=== PATIENT | male | born 1955 | race Caucasian/White ===

== ENCOUNTER 2017-08-06 11:13 | Emergency (ER) | payer MEDICAID ==
[~2017-08-06] VITALS: Ht 167.6 cm; Wt 68.5 kg
[2017-08-06] MEDS ORDERED: KETO5DRO80 EACHEYE (11:32)
[2017-08-06] MEDS ORDERED: OMEP20CA10 PO (11:32)
[2017-08-06] MEDS ORDERED: ICOS1CAP PO (11:32)
[2017-08-06] MEDS ORDERED: ASPI-1159 PO (11:32)
[2017-08-06] MEDS ORDERED: RENA-VITE (11:32)
[2017-08-06] MEDS ORDERED: INSU100I24 SQ (11:32)
[2017-08-06] MEDS ORDERED: FURO40TA5 PO (11:32)
[2017-08-06] MEDS ORDERED: CALC667T2 PO (11:32)
[2017-08-06] MEDS ORDERED: AMLO10TA80 PO (11:32)
[2017-08-06] MEDS ORDERED: ATOR40TA70 PO (11:32)
[2017-08-06] MEDS ORDERED: GABA-529 PO (11:32)
[2017-08-06 11:42] VITALS: BP 177/77
[2017-08-06 12:04] LABS: BASOPHILS % 0.2 % (0.0-2.0); EOSINOPHILS % 7.9 % (0.0-5.0); HEMATOCRIT. 38.6 % (42.0-52.0); HEMOGLOBIN. 12.7 g/dL (14.0-18.0); LYMPHOCYTES % 16.1 % (20.0-50.0); MEAN CORPUSCULAR HEMOGLOBIN 30.7 pg (28.0-32.0); MEAN CORPUSCULAR VOLUME 93.6 fL (80.0-94.0); MEAN PLATELET VOLUME 7.3 fl (7.4-10.4); MONOCYTES % 9.9 % (2.0-8.0); NEUTROPHILS % 65.9 % (40.0-76.0); PLATELET 275 x1000/uL (130-400); RED BLOOD CELL COUNT 4.12 mill/uL (4.7-6.1); RED CELL DISTRIBUTION WIDTH 14.6 % (11.6-14.6)
[2017-08-06 12:11] LABS: CHLORIDE 101 mEq/L (98-107)
[2017-08-06 12:20] LABS: CARBON DIOXIDE 30 mEq/L (21-32)
[2017-08-06 12:22] LABS: PROTHROMBIN TIME 10.8 sec (9.4-11.6)
== END 2017-08-06 12:46 | disposition home or self-care (01) ==
LOC: ER 11:30
DX: R41.82 Altered mental status, unspecified (principal); E11.9 Type 2 diabetes mellitus without complications; I10 Essential (primary) hypertension; Z99.2 Dependence on renal dialysis; Z79.82 Long term (current) use of aspirin; Z79.4 Long term (current) use of insulin
CPT/HCPCS: 36415; 71010; 80053; 83605; 85025; 85610; 87040; 93005; 99285

== ENCOUNTER 2018-11-23 17:44 | Inpatient (IN) | payer MEDICARE, MEDICAID ==
[~2018-11-23] VITALS: Ht 157.5 cm; Wt 68.1 kg
[~2018-11-23 17:44] MED LIST: AMLO10TA80 PO; ASPI-1159 PO; ATOR40TA70 PO; CALC667T2 PO; CARV25TA47 PO; DONE5TAB33 PO; FURO40TA5 PO; GABA-529 PO; ICOS1CAP PO; INSU100I24 SQ; KETO5DRO80 EACHEYE; MEMA10TA2 PO; OMEP20CA10 PO; RENA-VITE
[2018-11-23] MEDS ORDERED: ONDANSETRON HCL 4MG/2ML INJ IV STA (18:31)
[2018-11-23] MEDS ORDERED: NITROGLYCERIN OINT 1GM/INCH UDPKT TD ONE (18:45)
[2018-11-23] MEDS ORDERED: LORAZEPAM 0.5MG TABLET PO ONE (18:45)
[2018-11-23] MEDS ORDERED: FENTANYL CITRATE/PF 50MCG/ML 2ML VIAL IV ONE (18:45)
[2018-11-23 19:00] LABS: BASOPHILS % 0.5 % (0.0-2.0); HEMATOCRIT. 32.9 % (42.0-52.0); LYMPHOCYTES % 13.1 % (20.0-50.0); MEAN CORPUSCULAR HEMOGLOBIN 32.7 pg (28.0-32.0); MEAN CORPUSCULAR VOLUME 97.5 fL (80.0-94.0); MEAN PLATELET VOLUME 8.1 fl (7.4-10.4); MONOCYTES % 7.6 % (2.0-8.0); NEUTROPHILS % 67.8 % (40.0-76.0); PLATELET 216 x1000/uL (130-400); RED BLOOD CELL COUNT 3.38 mill/uL (4.7-6.1); RED CELL DISTRIBUTION WIDTH 14.4 % (11.6-14.6)
[2018-11-23 19:07] LABS: INR 1.1; PARTIAL THROMBOPLASTIN TIME 26.6 sec (23.4-31.0); PROTHROMBIN TIME 10.6 sec (9.1-11.1)
[2018-11-23 19:43] LABS: CLARITY URINE CLEAR (CLEAR); COLOR URINE YELLOW (YELLOW); KETONES URINE NEGATIVE (NEGATIVE); LEUKOCYTE ESTERASE URINE TRACE (NEGATIVE); NITRITE URINE NEGATIVE (NEGATIVE); OCCULT BLOOD URINE TRACE (NEGATIVE); PROTEIN URINE 4+ (NEGATIVE); SPECIFIC GRAVITY URINE 1.021 (1.005-1.030)
[2018-11-23 20:12] LABS: *AMPHETAMINES SCREEN URINE NEGATIVE (NEGATIVE); *BARBITURATES SCREEN URINE NEGATIVE (NEGATIVE); *COCAINE SCREEN URINE NEGATIVE (NEGATIVE); METHADONE URINE SCREEN NEGATIVE (NEGATIVE); OPIATES URINE SCREEN NEGATIVE (NEGATIVE); PHENCYCLIDINE URINE SCREEN NEGATIVE (NEGATIVE)
[2018-11-23 20:14] LABS: *BENZODIAZEPINES SCREEN URINE NEGATIVE (NEGATIVE); CANNABINOID URINE SCREEN NEGATIVE (NEGATIVE)
[2018-11-23 20:42] LABS: CHLORIDE 102 mEq/L (98-107)
[2018-11-23] MEDS: ENALAPRIL 5MG TABLET PO SCH (23:05)
[2018-11-23] MEDS ORDERED: DOCUSATE SODIUM 100MG CAPSULE PO PRN (23:45)
[2018-11-23] MEDS ORDERED: IPRATROPIUM/ALBUTEROL 0.5-3(2.5)MG/3ML NEB INH PRN (23:45)
[2018-11-23] MEDS ORDERED: HYDROCODONE/ACETAMINOPHEN 5/325MG TABLET PO PRN (23:45)
[2018-11-23] MEDS ORDERED: ONDANSETRON HCL 4MG/2ML INJ IV PRN (23:45)
[2018-11-23] MEDS ORDERED: ACETAMINOPHEN 325MG TABLET PO PRN (23:45)
[2018-11-24 06:33] LABS: BASOPHILS % 0.3 % (0.0-2.0); EOSINOPHILS % 12.2 % (0.0-5.0); HEMATOCRIT. 29.6 % (42.0-52.0); HEMOGLOBIN. 10.2 g/dL (14.0-18.0); MEAN CORPUSCULAR HEMOGLOBIN 33.1 pg (28.0-32.0); MEAN CORPUSCULAR VOLUME 96.6 fL (80.0-94.0); MEAN PLATELET VOLUME 7.7 fl (7.4-10.4); MONOCYTES % 8.1 % (2.0-8.0); NEUTROPHILS % 62.4 % (40.0-76.0); PLATELET 200 x1000/uL (130-400); RED BLOOD CELL COUNT 3.07 mill/uL (4.7-6.1); RED CELL DISTRIBUTION WIDTH 14.5 % (11.6-14.6)
[2018-11-24 06:50] LABS: CREATINE KINASE MB FRACTION 1.8 ng/mL (0.5-3.6)
[2018-11-24] MEDS: ASPIRIN 81MG EC TABLET PO SCH (09:15)
[2018-11-24 10:00] VITALS: BP 175/61
[2018-11-24 12:21] VITALS: BP 123/69
[2018-11-24 16:25] VITALS: BP 128/62
[2018-11-24] MEDS: FUROSEMIDE 40MG TABLET PO SCH (16:37)
[2018-11-24] MEDS ORDERED: DEXTROSE 50% WATER 50ML SYRINGE IV PRN (16:45)
[2018-11-24 17:22] LABS: CREATINE KINASE MB FRACTION 2.1 ng/mL (0.5-3.6)
[2018-11-24 20:15] VITALS: BP 175/71
[2018-11-24 22:00] VITALS: BP 155/70
[2018-11-24] MEDS: ENALAPRIL 5MG TABLET PO SCH (23:13)
[2018-11-24] MEDS: BLOOD SUGAR DIAGNOSTIC STRIP TEST SCH (23:15)
[2018-11-24] MEDS: INSULIN LISPRO 100 UNITS/ML SUBCUT SCH ×3 (23:15→23:45)
[2018-11-25] VITALS (7 sets, daily range): BP systolic 126–188; BP diastolic 56–70
[2018-11-25] MEDS: CLONIDINE 0.1MG TABLET PO PRN (04:50)
[2018-11-25] MEDS: ASPIRIN 81MG EC TABLET PO SCH (08:50)
[2018-11-25] MEDS: FUROSEMIDE 40MG TABLET PO SCH (08:50)
[2018-11-25] MEDS: ATORVASTATIN CALCIUM 40MG TABLET PO SCH (08:50)
[2018-11-25] MEDS: MEMANTINE HCL 10MG TABLET PO SCH (08:51)
[2018-11-25] MEDS: OMEPRAZOLE 20MG CAPSULE EXTENDED RELEASE PO SCH (08:51)
[2018-11-25] MEDS: DONEPEZIL HCL 5MG TABLET PO SCH (08:51)
[2018-11-25] MEDS ORDERED: AMLODIPINE 10MG TABLET PO SCH (09:00)
[2018-11-25] MEDS: DILTIAZEM HCL 90MG TABLET PO SCH ×2 (12:00→17:23)
[2018-11-25] MEDS: BLOOD SUGAR DIAGNOSTIC STRIP TEST SCH ×3 (12:20→21:22)
[2018-11-25] MEDS: INSULIN LISPRO 100 UNITS/ML SUBCUT SCH ×3 (12:50→21:00)
[2018-11-26] VITALS (7 sets, daily range): BP systolic 103–178; BP diastolic 51–73
[2018-11-26] MEDS: CLONIDINE 0.1MG TABLET PO PRN (00:27)
[2018-11-26] MEDS: DILTIAZEM HCL 90MG TABLET PO SCH ×3 (05:03→12:00)
[2018-11-26 05:57] LABS: BASOPHILS % 0.3 % (0.0-2.0); EOSINOPHILS % 10.3 % (0.0-5.0); HEMATOCRIT. 32.9 % (42.0-52.0); HEMOGLOBIN. 10.9 g/dL (14.0-18.0); LYMPHOCYTES % 14.3 % (20.0-50.0); MEAN CORPUSCULAR HEMOGLOBIN 32.4 pg (28.0-32.0); MEAN CORPUSCULAR VOLUME 97.9 fL (80.0-94.0); MEAN PLATELET VOLUME 7.6 fl (7.4-10.4); MONOCYTES % 7.8 % (2.0-8.0); NEUTROPHILS % 67.3 % (40.0-76.0); PLATELET 189 x1000/uL (130-400); RED BLOOD CELL COUNT 3.36 mill/uL (4.7-6.1); RED CELL DISTRIBUTION WIDTH 14.6 % (11.6-14.6)
[2018-11-26] MEDS: BLOOD SUGAR DIAGNOSTIC STRIP TEST SCH ×4 (06:20→21:33)
[2018-11-26] MEDS: INSULIN LISPRO 100 UNITS/ML SUBCUT SCH ×4 (06:20→21:00)
[2018-11-26] MEDS: MEMANTINE HCL 10MG TABLET PO SCH (10:00)
[2018-11-26] MEDS: FUROSEMIDE 40MG TABLET PO SCH (10:00)
[2018-11-26] MEDS: OMEPRAZOLE 20MG CAPSULE EXTENDED RELEASE PO SCH (10:00)
[2018-11-26] MEDS: DONEPEZIL HCL 5MG TABLET PO SCH (10:00)
[2018-11-26] MEDS: ATORVASTATIN CALCIUM 40MG TABLET PO SCH (10:00)
[2018-11-26] MEDS: ASPIRIN 81MG EC TABLET PO SCH (10:00)
[2018-11-26] MEDS: AMLODIPINE 5MG TABLET PO SCH ×2 (13:27→21:25)
[2018-11-26] MEDS ORDERED: AMLODIPINE 5MG TABLET PO SCH (13:30)
[2018-11-26] MEDS ORDERED: HYDRALAZINE 20MG/ML VIAL IV PRN (13:45)
[2018-11-26] MEDS ORDERED: HYDRALAZINE HCL 50MG TABLET PO SCH (14:00)
[2018-11-26] MEDS ORDERED: DILTIAZEM HCL 30MG TABLET PO SCH ×2 (14:30→18:00)
[2018-11-26] MEDS ORDERED: SODIUM POLYSTYRENE SULFONATE 15 G/60 ML BOT PO NR (18:00)
[2018-11-26] MEDS: HYDRALAZINE HCL 50MG TABLET PO SCH (23:00)
[2018-11-27 04:00] VITALS: BP 191/61
[2018-11-27] MEDS: HYDRALAZINE HCL 50MG TABLET PO SCH ×2 (04:36→14:00)
[2018-11-27] MEDS: BLOOD SUGAR DIAGNOSTIC STRIP TEST SCH ×4 (06:52→20:08)
[2018-11-27] MEDS: INSULIN LISPRO 100 UNITS/ML SUBCUT SCH ×4 (06:54→20:08)
[2018-11-27 07:13] LABS: HEMATOCRIT 34.5 % (42.0-52.0); HEMOGLOBIN 11.7 g/dL (14.0-18.0); MEAN CORPUSCULAR HEMOGLOBIN 32.9 pg (28.0-32.0); MEAN CORPUSCULAR VOLUME 96.5 fL (80.0-94.0); PLATELET 191 x1000/uL (130-400); RED BLOOD CELL COUNT 3.57 mill/uL (4.7-6.1)
[2018-11-27 08:00] VITALS: BP 155/61
[2018-11-27] MEDS ORDERED: FAMOTIDINE 20MG TABLET PO SCH (09:00)
[2018-11-27] MEDS: AMLODIPINE 5MG TABLET PO SCH ×2 (09:00→20:05)
[2018-11-27] MEDS: FUROSEMIDE 40MG TABLET PO SCH (09:17)
[2018-11-27] MEDS: DONEPEZIL HCL 5MG TABLET PO SCH (09:17)
[2018-11-27] MEDS: MEMANTINE HCL 10MG TABLET PO SCH (09:17)
[2018-11-27] MEDS: ATORVASTATIN CALCIUM 40MG TABLET PO SCH (09:17)
[2018-11-27] MEDS: ASPIRIN 81MG EC TABLET PO SCH (09:17)
[2018-11-27 12:00] VITALS: BP 131/65
[2018-11-27 16:00] VITALS: BP 151/63
[2018-11-27] MEDS: CLONIDINE 0.1MG TABLET PO PRN (18:20)
[2018-11-27 20:00] VITALS: BP 156/91
== END 2018-11-27 22:06 | disposition home or self-care (01) | DRG 205 ==
LOC: ER 17:44 → 6WST 19:45 → EDBEDREQTM 20:02 → EDBEDREQ 20:02 → ENRESERV 11-24 07:25
PROVIDERS: ADMIT Internal Medicine; ATTEND Internal Medicine
PROC: 5A1D70Z Performance of Urinary Filtration, Intermittent, Less than 6 Hours Per Day (ICD-10-PCS; principal; 2018-11-24)
PROC: 5A1D70Z Performance of Urinary Filtration, Intermittent, Less than 6 Hours Per Day (ICD-10-PCS; 2018-11-25)
PROC: 5A1D70Z Performance of Urinary Filtration, Intermittent, Less than 6 Hours Per Day (ICD-10-PCS; 2018-11-26)
PROC: 5A1D70Z Performance of Urinary Filtration, Intermittent, Less than 6 Hours Per Day (ICD-10-PCS; 2018-11-27)
DX: M94.0 Chondrocostal junction syndrome [Tietze] (principal); N18.6 End stage renal disease; I50.30 Unspecified diastolic (congestive) heart failure; I13.2 Hypertensive heart and chronic kidney disease with heart failure and with stage 5 chronic kidney disease, or end stage renal disease; N39.0 Urinary tract infection, site not specified; E87.5 Hyperkalemia; E66.9 Obesity, unspecified; E78.5 Hyperlipidemia, unspecified; E11.22 Type 2 diabetes mellitus with diabetic chronic kidney disease; F03.90 Unspecified dementia, unspecified severity, without behavioral disturbance, psychotic disturbance, mood disturbance, and anxiety; G25.3 Myoclonus; D53.9 Nutritional anemia, unspecified; I08.1 Rheumatic disorders of both mitral and tricuspid valves; R00.1 Bradycardia, unspecified; R00.0 Tachycardia, unspecified; I27.20 Pulmonary hypertension, unspecified; Z79.4 Long term (current) use of insulin; Z79.82 Long term (current) use of aspirin; Z79.899 Other long term (current) drug therapy; Z99.2 Dependence on renal dialysis; Z87.891 Personal history of nicotine dependence; Z68.27 Body mass index [BMI] 27.0-27.9, adult
CPT/HCPCS: 36415; 71045; 80048; 80061; 80305; 82550; 82553; 82607; 82728; 82746; 82962; 83036; 83540; 83550; 83735; 83880; 84100; 84132; 84443; 84484; 85027; 93005; 93306; 93970; 99285; J0360; J1815; J2405; J3010

== ENCOUNTER 2021-04-26 16:12 | Emergency (ER) | payer MEDICARE, MEDICAID ==
[~2021-04-26] VITALS: Ht 157.5 cm; Wt 75.0 kg
[~2021-04-26 16:12] MED LIST changes: -AMLO10TA80 PO; -ASPI-1159 PO; +ASPI-1497 PO; -CARV25TA47 PO; -ICOS1CAP PO; -OMEP20CA10 PO; +OMEP20CA14 PO
[2021-04-26 16:49] LABS: BASOPHILS % 0.3 % (0.0-2.0); EOSINOPHILS % 7.3 % (0.0-5.0); HEMATOCRIT. 30.6 % (42.0-52.0); HEMOGLOBIN. 10.8 g/dL (14.0-18.0); LYMPHOCYTES % 10.5 % (20.0-50.0); MEAN CORPUSCULAR HEMOGLOBIN 34.7 pg (28.0-32.0); MEAN CORPUSCULAR VOLUME 97.8 fL (80.0-94.0); MEAN PLATELET VOLUME 7.2 fl (7.4-10.4); MONOCYTES % 7.3 % (2.0-8.0); NEUTROPHILS % 74.6 % (40.0-76.0); PLATELET 195 x1000/uL (130-400); RED BLOOD CELL COUNT 3.13 mill/uL (4.7-6.1); RED CELL DISTRIBUTION WIDTH 14.1 % (11.6-14.6)
[2021-04-26 16:55] LABS: CHLORIDE 102 mEq/L (98-107)
[2021-04-26] MEDS ORDERED: MAGNESIUM/ALUMINUM HYDROXIDE/SIMETHICONE 30ML UDC PO ONE (18:00)
[2021-04-26] MEDS ORDERED: MAGNESIUM CITRATE 300ML SOLUTION PO ONE (18:00)
[2021-04-26] MEDS ORDERED: HYDRALAZINE HCL 100MG TABLET PO ONE (18:00)
[2021-04-26 18:26] VITALS: BP 169/94
== END 2021-04-26 18:39 | disposition home or self-care (01) ==
LOC: ER 16:12
DX: R07.9 Chest pain, unspecified (principal); I12.0 Hypertensive chronic kidney disease with stage 5 chronic kidney disease or end stage renal disease; N18.6 End stage renal disease; J90 Pleural effusion, not elsewhere classified; I51.7 Cardiomegaly; I45.10 Unspecified right bundle-branch block; E11.22 Type 2 diabetes mellitus with diabetic chronic kidney disease; Z79.4 Long term (current) use of insulin; Z99.2 Dependence on renal dialysis; Z79.82 Long term (current) use of aspirin
CPT/HCPCS: 36415; 71045; 80053; 84484; 85025; 93005; 99285

== ENCOUNTER 2021-08-21 17:32 | Emergency (ER) | payer MEDICARE, MEDICAID ==
[~2021-08-21] VITALS: Ht 170.2 cm; Wt 64.0 kg
[2021-08-21 17:34] VITALS: BP 148/69
[2021-08-21 18:59] LABS: BASOPHILS % 0.3 % (0.0-2.0); EOSINOPHILS % 7.5 % (0.0-5.0); HEMATOCRIT. 32.4 % (42.0-52.0); HEMOGLOBIN. 11.3 g/dL (14.0-18.0); LYMPHOCYTES % 13.6 % (20.0-50.0); MEAN CORPUSCULAR HEMOGLOBIN 34.2 pg (28.0-32.0); MEAN CORPUSCULAR VOLUME 98.1 fL (80.0-94.0); MEAN PLATELET VOLUME 6.9 fl (7.4-10.4); MONOCYTES % 10.4 % (2.0-8.0); NEUTROPHILS % 68.2 % (40.0-76.0); PLATELET 226 x1000/uL (130-400); RED CELL DISTRIBUTION WIDTH 15.1 % (11.6-14.6)
[2021-08-21 19:06] LABS: CHLORIDE 99 mEq/L (98-107)
== END 2021-08-21 21:37 | disposition home or self-care (01) ==
LOC: ER 17:32
DX: R25.1 Tremor, unspecified (principal); R07.89 Other chest pain; I10 Essential (primary) hypertension; E11.9 Type 2 diabetes mellitus without complications; Z79.4 Long term (current) use of insulin; Z79.899 Other long term (current) drug therapy; Z79.82 Long term (current) use of aspirin; Z98.890 Other specified postprocedural states
CPT/HCPCS: 36415; 71045; 80053; 84484; 85025; 93005; 99285

== ENCOUNTER 2022-05-23 14:09 | Emergency (ER) | payer BC, MEDICAID ==
[~2022-05-23] VITALS: Ht 162.6 cm; Wt 70.0 kg
[~2022-05-23 14:09] MED LIST changes: +AMLO-498 MT; +CARV25TA47 PO; +CLON-457 PO; +LANTUSUD SUBCUT; +TRAZ-251 PO
[2022-05-23 15:25] LABS: BASOPHILS % 0.1 % (0.0-2.0); EOSINOPHILS % 4.8 % (0.0-5.0); HEMATOCRIT. 38.6 % (42.0-52.0); HEMOGLOBIN. 12.8 g/dL (14.0-18.0); LYMPHOCYTES % 7.6 % (20.0-50.0); MEAN CORPUSCULAR HEMOGLOBIN 33.8 pg (28.0-32.0); MEAN CORPUSCULAR VOLUME 101.3 fL (80.0-94.0); MEAN PLATELET VOLUME 6.7 fl (7.4-10.4); MONOCYTES % 5.9 % (2.0-8.0); NEUTROPHILS % 81.6 % (40.0-76.0); PLATELET 228 x1000/uL (130-400); RED BLOOD CELL COUNT 3.81 mill/uL (4.7-6.1); RED CELL DISTRIBUTION WIDTH 14.2 % (11.6-14.6)
[2022-05-23 15:32] LABS: CHLORIDE 96 mEq/L (98-107)
[2022-05-23 15:51] LABS: ETHANOL BLOOD < 10 mg/dL
[2022-05-23 22:30] VITALS: BP 144/87
== END 2022-05-23 22:30 | disposition home or self-care (01) ==
LOC: ER 14:33
DX: R25.1 Tremor, unspecified (principal); E11.9 Type 2 diabetes mellitus without complications; I13.2 Hypertensive heart and chronic kidney disease with heart failure and with stage 5 chronic kidney disease, or end stage renal disease; E11.22 Type 2 diabetes mellitus with diabetic chronic kidney disease; N18.6 End stage renal disease; I50.9 Heart failure, unspecified; Z99.2 Dependence on renal dialysis; Z79.4 Long term (current) use of insulin; Z79.82 Long term (current) use of aspirin; Z20.822 Contact with and (suspected) exposure to COVID-19
CPT/HCPCS: 36415; 71045; 80053; 80320; 83605; 83690; 83880; 84443; 84484; 85025; 87426; 99284; C9803; 81003; G0480

== ENCOUNTER 2022-12-16 12:25 | Inpatient (IN) | payer BC, MEDICAID ==
[2022-12-16] VITALS (9 sets, daily range): BP systolic 84–148; BP diastolic 40–57
[~2022-12-16] VITALS: Ht 177.8 cm; Wt 74.0 kg
[2022-12-16 13:10] LABS: HEMATOCRIT. 32.5 % (42.0-52.0); HEMOGLOBIN. 10.8 g/dL (14.0-18.0); MEAN CORPUSCULAR HEMOGLOBIN 33.7 pg (28.0-32.0); MEAN CORPUSCULAR VOLUME 101.1 fL (80.0-94.0); MEAN PLATELET VOLUME 7.4 fl (7.4-10.4); PLATELET 213 x1000/uL (130-400); RED BLOOD CELL COUNT 3.22 mill/uL (4.7-6.1); RED CELL DISTRIBUTION WIDTH 13.5 % (11.6-14.6)
[2022-12-16 13:18] LABS: CHLORIDE 97 mEq/L (98-107)
[2022-12-16 13:35] LABS: ETHANOL BLOOD < 10 mg/dL
[2022-12-16 13:37] LABS: PLATELET ESTIMATE NORMAL
[2022-12-16] MEDS ORDERED: DEXTROSE 50% WATER 50ML SYRINGE IV ONE (14:15)
[2022-12-16] MEDS ORDERED: INSULIN REGULAR (HUMULIN R) 300UNITS/3ML VIAL IV ONE (14:15)
[2022-12-16] MEDS ORDERED: CALCIUM CHLORIDE 1,000 MG in DEXT 5% WATER 100 ML IV ONE (14:15)
[2022-12-16] MEDS ORDERED: ALBUTEROL (0.083%) 2.5MG/3ML NEB HHN SCH (14:30)
[2022-12-16] MEDS ORDERED: SODIUM POLYSTYRENE SULFONATE 15 G/60 ML BOT PO NR (14:30)
[2022-12-16] MEDS ORDERED: SODIUM BICARBONATE 8.4% 1 MEQ/ML 50ML SYR IV ONE (14:30)
[2022-12-16] MEDS ORDERED: CALCIUM GLUCONATE 1GM PREMIX 50 ML IV ONE (15:15)
[2022-12-16 15:35] LABS: HEPATITIS B SURFACE ANTIGEN NEGATIVE
[2022-12-16] MEDS ORDERED: DEXTROSE 50% WATER 50ML SYRINGE IV PRN (15:45)
[2022-12-16] MEDS: BLOOD SUGAR DIAGNOSTIC STRIP TEST SCH ×2 (17:30→23:00)
[2022-12-16] MEDS: INSULIN LISPRO 100 UNITS/ML SUBCUT SCH ×2 (18:20→23:20)
[2022-12-16] MEDS ORDERED: DOPAMINE 800MG/500ML PREMIX 500 ML IV SCH ×2 (19:06→19:30)
[2022-12-16] MEDS ORDERED: DOPAMINE 800MG PREMIX (DOUBLE) 250 ML IV SCH (20:00)
[2022-12-16] MEDS: DOPAMINE 400MG/250ML PREMIX 250 ML IV SCH (20:15)
[2022-12-17] VITALS (16 sets, daily range): BP systolic 126–212; BP diastolic 40–106
[2022-12-17] MEDS ORDERED: ONDANSETRON HCL 4MG/2ML INJ ONE ×2 (04:37→16:22)
[2022-12-17 05:15] LABS: HEMATOCRIT. 36.8 % (42.0-52.0); HEMOGLOBIN. 12.3 g/dL (14.0-18.0); MEAN CORPUSCULAR HEMOGLOBIN 33.8 pg (28.0-32.0); MEAN CORPUSCULAR VOLUME 100.8 fL (80.0-94.0); MEAN PLATELET VOLUME 8.6 fl (7.4-10.4); PLATELET 248 x1000/uL (130-400); RED BLOOD CELL COUNT 3.65 mill/uL (4.7-6.1); RED CELL DISTRIBUTION WIDTH 13.4 % (11.6-14.6)
[2022-12-17 05:48] LABS: T4 FREE 1.1 ng/dL (0.76-1.46)
[2022-12-17] MEDS: BLOOD SUGAR DIAGNOSTIC STRIP TEST SCH ×3 (06:30→21:05)
[2022-12-17] MEDS: INSULIN LISPRO 100 UNITS/ML SUBCUT SCH ×3 (07:00→21:00)
[2022-12-17] MEDS: DOPAMINE 400MG/250ML PREMIX 250 ML IV SCH (07:42)
[2022-12-17] MEDS ORDERED: ONDANSETRON HCL 4MG/2ML INJ IV PRN ×2 (08:00→17:45)
[2022-12-17] MEDS ORDERED: ENOXAPARIN 120MG/0.8ML SYR SUBCUT SCH (09:00)
[2022-12-17] MEDS ORDERED: ASPIRIN 81MG TABLET PO SCH (09:00)
[2022-12-17] MEDS ORDERED: CEFTRIAXONE 1 G PREMIX 50 ML IV SCH (09:00)
[2022-12-17 09:32] LABS: PLATELET ESTIMATE NORMAL
[2022-12-17] MEDS ORDERED: IODIXANOL 320MG/ML 100 ML BOTTLE IV ONE (15:44)
[2022-12-17] MEDS ORDERED: LIDOCAINE HCL/PF 2% 20MG/ML 5 ML/VIAL ONE (15:50)
[2022-12-17] MEDS ORDERED: HEPARIN 1000 UNITS/ML 10ML ONE (15:57)
[2022-12-17] MEDS ORDERED: FENTANYL CITRATE/PF 50MCG/ML 2ML VIAL ONE (16:18)
[2022-12-17] MEDS ORDERED: MIDAZOLAM HCL 2 MG/2 ML VIAL ONE (16:19)
[2022-12-17] MEDS ORDERED: NICARDIPINE 100MCG/ML 10ML VIAL (CATH LAB) IV ONE (17:40)
[2022-12-17] MEDS ORDERED: NITROGLYCERIN 50MCG/ML 10ML VIAL (CATH LAB) IV ONE (17:40)
[2022-12-17] MEDS ORDERED: ATROPINE SULFATE 1MG/10ML SYR IV PRN (17:45)
[2022-12-17] MEDS ORDERED: DOPAMINE 400MG/250ML PREMIX 250 ML IV SCH (17:45)
[2022-12-17] MEDS ORDERED: MORPHINE SULFATE 2 MG/ML CPJ (NOT FOR IM USE) IV PRN (17:45)
[2022-12-17] MEDS ORDERED: ACETAMINOPHEN 325MG TABLET PO PRN (17:45)
[2022-12-17] MEDS ORDERED: NALOXONE HCL 0.4MG/ML VIAL IV PRN (19:00)
[2022-12-17] MEDS ORDERED: PNEUMOCOCCAL 23-VAL P-SAC VAC 0.5 ML IM ONE (19:30)
[2022-12-17] MEDS ORDERED: INFLUENZA VACCINE 05/PF 0.5 ML SYRINGE IM ONE (19:30)
[2022-12-17] MEDS ORDERED: FAMO20TA8 PO (20:19)
[2022-12-17] MEDS ORDERED: CARVEDILOL 3.125 MG TABLET PO SCH (21:00)
[2022-12-17] MEDS: ATORVASTATIN CALCIUM 40MG TABLET PO SCH (21:04)
[2022-12-17] MEDS: AMLODIPINE 10MG TABLET PO SCH (21:05)
[2022-12-17] MEDS: FAMOTIDINE 20MG TABLET PO SCH (21:05)
[2022-12-17] MEDS ORDERED: CLONIDINE 0.1MG TABLET PO SCH (22:00)
[2022-12-17] MEDS: HYDRALAZINE HCL 50MG TABLET PO SCH (22:24)
[2022-12-17 22:32] LABS: AMYLASE 79 IU/L (25-115)
[2022-12-17 23:04] LABS: VITAMIN B12 SERUM 629 pg/mL (211-911)
[2022-12-18] VITALS (95 sets, daily range): BP systolic 82–181; BP diastolic 31–116
[2022-12-18] MEDS: METOCLOPRAMIDE HCL 10MG/2ML VIAL IV SCH ×5 (00:39→23:23)
[2022-12-18] MEDS: DOPAMINE 400MG/250ML PREMIX 250 ML IV SCH ×2 (02:33→20:07)
[2022-12-18 06:28] LABS: BASOPHILS % 0.1 % (0.0-2.0); EOSINOPHILS % 1.8 % (0.0-5.0); HEMATOCRIT. 34.9 % (42.0-52.0); LYMPHOCYTES % 7.6 % (20.0-50.0); MEAN CORPUSCULAR HEMOGLOBIN 34.5 pg (28.0-32.0); MEAN CORPUSCULAR VOLUME 100.2 fL (80.0-94.0); MEAN PLATELET VOLUME 7.9 fl (7.4-10.4); MONOCYTES % 7.2 % (2.0-8.0); NEUTROPHILS % 83.3 % (40.0-76.0); PLATELET 265 x1000/uL (130-400); RED BLOOD CELL COUNT 3.49 mill/uL (4.7-6.1); RED CELL DISTRIBUTION WIDTH 13.4 % (11.6-14.6)
[2022-12-18 06:36] LABS: INR 1.1; PROTHROMBIN TIME 11.3 sec (9.6-11.0)
[2022-12-18] MEDS: HYDRALAZINE HCL 50MG TABLET PO SCH (06:39)
[2022-12-18] MEDS: BLOOD SUGAR DIAGNOSTIC STRIP TEST SCH ×4 (08:18→21:00)
[2022-12-18] MEDS: INSULIN LISPRO 100 UNITS/ML SUBCUT SCH ×4 (08:18→21:00)
[2022-12-18] MEDS: CALCIUM ACETATE 667MG CAPSULE PO SCH ×3 (08:35→17:32)
[2022-12-18] MEDS: AMLODIPINE 10MG TABLET PO SCH (08:37)
[2022-12-18] MEDS: CEFTRIAXONE 1,000 MG in DEXTROSE 5% WATER 50 ML IV SCH (11:19)
[2022-12-18] MEDS: ASPIRIN 81MG TABLET PO SCH (11:20)
[2022-12-18] MEDS: FAMOTIDINE 20MG TABLET PO SCH (21:18)
[2022-12-18] MEDS: ATORVASTATIN CALCIUM 40MG TABLET PO SCH (21:18)
[2022-12-19] VITALS (73 sets, daily range): BP systolic 92–198; BP diastolic 27–101
[2022-12-19] MEDS: METOCLOPRAMIDE HCL 10MG/2ML VIAL IV SCH ×4 (06:02→23:37)
[2022-12-19] MEDS: BLOOD SUGAR DIAGNOSTIC STRIP TEST SCH ×4 (08:10→21:00)
[2022-12-19] MEDS: INSULIN LISPRO 100 UNITS/ML SUBCUT SCH ×4 (08:10→21:49)
[2022-12-19] MEDS: CALCIUM ACETATE 667MG CAPSULE PO SCH ×3 (08:58→17:51)
[2022-12-19] MEDS: ASPIRIN 81MG TABLET PO SCH (08:58)
[2022-12-19] MEDS: CEFTRIAXONE 1,000 MG in DEXTROSE 5% WATER 50 ML IV SCH (11:08)
[2022-12-19] MEDS: DOPAMINE 400MG/250ML PREMIX 250 ML IV SCH (13:34)
[2022-12-19] MEDS: ATORVASTATIN CALCIUM 40MG TABLET PO SCH (21:41)
[2022-12-19] MEDS: FAMOTIDINE 20MG TABLET PO SCH (21:41)
[2022-12-19 23:58] LABS: HEPATITIS B SURFACE ANTIGEN NEGATIVE
[2022-12-20] VITALS (58 sets, daily range): BP systolic 113–207; BP diastolic 43–146
[2022-12-20] MEDS: HYDRALAZINE 20MG/ML VIAL IV PRN ×2 (04:32→16:57)
[2022-12-20] MEDS: METOCLOPRAMIDE HCL 10MG/2ML VIAL IV SCH ×3 (05:56→16:57)
[2022-12-20] MEDS: BLOOD SUGAR DIAGNOSTIC STRIP TEST SCH ×4 (07:50→20:55)
[2022-12-20] MEDS ORDERED: GENTAMICIN SULF 40MG/ML 2ML VIAL ONE (08:09)
[2022-12-20] MEDS ORDERED: LIDOCAINE HCL 1% 20ML VIAL (Pyxis) INJ ONE (08:11)
[2022-12-20] MEDS ORDERED: IODIXANOL 320MG/ML 100 ML BOTTLE IV ONE (08:15)
[2022-12-20] MEDS: INSULIN LISPRO 100 UNITS/ML SUBCUT SCH ×4 (08:20→20:55)
[2022-12-20] MEDS ORDERED: LIDOCAINE HCL 1% 10 MG/ML 10ML VIAL ONE (08:31)
[2022-12-20] MEDS ORDERED: PROPOFOL 200MG/20ML VIAL IV ONE (08:32)
[2022-12-20] MEDS ORDERED: FENTANYL CITRATE/PF 50MCG/ML 2ML VIAL ONE ×2 (08:32→09:30)
[2022-12-20] MEDS ORDERED: MIDAZOLAM HCL 2 MG/2 ML VIAL ONE ×2 (08:33→09:30)
[2022-12-20] MEDS: ASPIRIN 81MG TABLET PO SCH (11:29)
[2022-12-20] MEDS: CALCIUM ACETATE 667MG CAPSULE PO SCH ×3 (11:29→16:57)
[2022-12-20] MEDS ORDERED: HYDROCODONE/ACETAMINOPHEN 5/325MG TABLET PO PRN (11:30)
[2022-12-20] MEDS: CEFTRIAXONE 1,000 MG in DEXTROSE 5% WATER 50 ML IV SCH (11:31)
[2022-12-20 12:20] LABS: HEMATOCRIT 36.5 % (42.0-52.0); HEMOGLOBIN 12.3 g/dL (14.0-18.0); MEAN CORPUSCULAR HEMOGLOBIN 33.7 pg (28.0-32.0); PLATELET 312 x1000/uL (130-400); RED BLOOD CELL COUNT 3.65 mill/uL (4.7-6.1); RED CELL DISTRIBUTION WIDTH 13.2 % (11.6-14.6)
[2022-12-20] MEDS: FAMOTIDINE 20MG TABLET PO SCH (20:54)
[2022-12-20] MEDS: ATORVASTATIN CALCIUM 40MG TABLET PO SCH (20:54)
[2022-12-21] MEDS: METOCLOPRAMIDE HCL 10MG/2ML VIAL IV SCH ×4 (00:11→11:53)
[2022-12-21 05:42] LABS: HEMATOCRIT. 38.8 % (42.0-52.0); HEMOGLOBIN. 13.2 g/dL (14.0-18.0); MEAN CORPUSCULAR HEMOGLOBIN 33.6 pg (28.0-32.0); MEAN CORPUSCULAR VOLUME 98.7 fL (80.0-94.0); MEAN PLATELET VOLUME 7.3 fl (7.4-10.4); PLATELET 288 x1000/uL (130-400); RED BLOOD CELL COUNT 3.93 mill/uL (4.7-6.1); RED CELL DISTRIBUTION WIDTH 13.3 % (11.6-14.6)
[2022-12-21] MEDS: HYDRALAZINE 20MG/ML VIAL IV PRN (05:59)
[2022-12-21] MEDS: INSULIN LISPRO 100 UNITS/ML SUBCUT SCH ×2 (06:03→12:10)
[2022-12-21] MEDS: BLOOD SUGAR DIAGNOSTIC STRIP TEST SCH ×2 (06:03→11:34)
[2022-12-21 08:00] VITALS: BP 148/58
[2022-12-21] MEDS: CALCIUM ACETATE 667MG CAPSULE PO SCH ×2 (08:51→12:07)
[2022-12-21] MEDS: ASPIRIN 81MG TABLET PO SCH (08:51)
[2022-12-21 11:00] VITALS: BP 148/58
[2022-12-21 11:44] LABS: PLATELET ESTIMATE NORMAL
[2022-12-21] MEDS: CEFTRIAXONE 1,000 MG in DEXTROSE 5% WATER 50 ML IV SCH (11:48)
[2022-12-21 12:00] VITALS: BP 139/61
[2022-12-21 16:00] VITALS: BP 134/57
== END 2022-12-21 17:26 | disposition home or self-care (01) | DRG 242 ==
LOC: ER 12:25 → MICUSO 14:25 → EDBEDREQTM 14:29 → EDBEDREQSVC 14:29 → EDBEDREQ 14:29 → CVICU 12-17 18:10 → 8WST 12-20 18:58
PROVIDERS: ADMIT Internal Medicine Pulmonary Disease; ATTEND Internal Medicine Pulmonary Disease
PROC: 5A1D70Z Performance of Urinary Filtration, Intermittent, Less than 6 Hours Per Day (ICD-10-PCS; 2022-12-16)
PROC: 4A023N7 Measurement of Cardiac Sampling and Pressure, Left Heart, Percutaneous Approach (ICD-10-PCS; 2022-12-17)
PROC: B2111ZZ Fluoroscopy of Multiple Coronary Arteries using Low Osmolar Contrast (ICD-10-PCS; 2022-12-17)
PROC: B2151ZZ Fluoroscopy of Left Heart using Low Osmolar Contrast (ICD-10-PCS; 2022-12-17)
PROC: 4A033BC Measurement of Arterial Pressure, Coronary, Percutaneous Approach (ICD-10-PCS; 2022-12-17)
PROC: 5A1D70Z Performance of Urinary Filtration, Intermittent, Less than 6 Hours Per Day (ICD-10-PCS; 2022-12-18)
PROC: 02H63JZ Insertion of Pacemaker Lead into Right Atrium, Percutaneous Approach (ICD-10-PCS; principal; 2022-12-20)
PROC: 0JH606Z Insertion of Pacemaker, Dual Chamber into Chest Subcutaneous Tissue and Fascia, Open Approach (ICD-10-PCS; 2022-12-20)
PROC: 02HK3JZ Insertion of Pacemaker Lead into Right Ventricle, Percutaneous Approach (ICD-10-PCS; 2022-12-20)
PROC: B5171ZZ Fluoroscopy of Left Subclavian Vein using Low Osmolar Contrast (ICD-10-PCS; 2022-12-20)
PROC: 5A1D70Z Performance of Urinary Filtration, Intermittent, Less than 6 Hours Per Day (ICD-10-PCS; 2022-12-20)
DX: I49.5 Sick sinus syndrome (principal); G92.8 Other toxic encephalopathy; I21.4 Non-ST elevation (NSTEMI) myocardial infarction; N18.6 End stage renal disease; E44.1 Mild protein-calorie malnutrition; E87.1 Hypo-osmolality and hyponatremia; I12.0 Hypertensive chronic kidney disease with stage 5 chronic kidney disease or end stage renal disease; J90 Pleural effusion, not elsewhere classified; I45.3 Trifascicular block; E87.5 Hyperkalemia; E78.5 Hyperlipidemia, unspecified; E11.22 Type 2 diabetes mellitus with diabetic chronic kidney disease; Z20.822 Contact with and (suspected) exposure to COVID-19; D63.1 Anemia in chronic kidney disease; G25.3 Myoclonus; F03.90 Unspecified dementia, unspecified severity, without behavioral disturbance, psychotic disturbance, mood disturbance, and anxiety; I25.10 Atherosclerotic heart disease of native coronary artery without angina pectoris; D72.829 Elevated white blood cell count, unspecified; Z79.899 Other long term (current) drug therapy; Z99.2 Dependence on renal dialysis; Z68.23 Body mass index [BMI] 23.0-23.9, adult; Z91.15 Patient's noncompliance with renal dialysis
CPT/HCPCS: 33208; 36415; 71045; 74018; 75820; 80048; 80053; 80320; 82140; 82150; 82607; 82962; 83605; 83880; 84145; 84439; 84443; 84481; 84484; 85025; 85027; 85347; 86705; 86709; 86803; 87340; 87426; 90935; 93005; 93306; 93458; 93571; 93923; 94640; 99291; A4565; C1769; C1785; C1887; C1893; C1898; J0360; J0610; J0696; J1265; J1580; J1644; J1650; J1815; J2250; J2405; J2704; J2765; J3010; J3490; J7060; L3670; Q9967; G0480